=== PATIENT | female | born 1985 | race Caucasian/White ===

== ENCOUNTER 2024-10-11 16:02 | Emergency (ER) | payer MEDICAID ==
[~2024-10-11] VITALS: Ht 170.2 cm; Wt 91.0 kg
[2024-10-11] MEDS ORDERED: ACETAMINOPHEN 500 MG TAB PO ONE (19:00)
[2024-10-11] MEDS ORDERED: IBUPROFEN 600 MG TAB PO ONE (19:00)
[2024-10-11 19:28] VITALS: BP 144/100
== END 2024-10-11 19:29 | disposition home or self-care (01) ==
LOC: ED 16:02
DX: M25.551 Pain in right hip (principal); Z96.643 Presence of artificial hip joint, bilateral
CPT/HCPCS: 73502; 84703; 99284; A9270